=== PATIENT | female | born 1990 | race Caucasian/White ===

== ENCOUNTER 2016-12-14 10:09 | Emergency (ER) | payer MEDICAID ==
[~2016-12-14] VITALS: Ht 162.6 cm; Wt 62.1 kg
[~2016-12-14 10:09] MED LIST: PRENCAP35 PO
[2016-12-14 10:24] VITALS: BP 134/98; PULSE 87
[2016-12-14 10:25] VITALS: BP 120/72; PULSE 97
[2016-12-14 10:30] VITALS: RESP 16; TEMP 98.1
--- NOTE | 2016-12-14 10:41 | PD ---
HPI Chief Complaint abdominal pressure Travel History International Travel<30 Days: No Contact w/Intl Traveler<30Days: No History of Present Illness HPI Ms. Carter is a 26 yo G1 patient of Nellie Trevino at 32 1/7 weeks (YAN 02/07/2017) who presents with complaint of lower abdominal/vaginal cramping/pressure. Patient states that lower abdominal/vaginal pressure is constant in nature and has been present for the past hour. Patient states it will briefly remit for a few seconds at a time prior to recurring. Patient also reports urinary urgency ; she denies dysuria, fever/chills, back pain. Patient does not report vaginal bleeding or loss of vaginal fluid. Patient reports normal bowel movements. Patient denies headache, shortness of breath, chest pain, leg swelling, or other symptoms. Patient reports normal movement. Patient reports unremarkable course. Patient states she had normal ultrasounds several weeks prior. Patient states she smokes approximately one half pack of cigarettes daily. : 1 History Past Medical History Medical History: Denies Significant Hx Obstetric History Obstetric History G1 Past Surgical History Surgical History: No Previous Surgery Family History Narrative Family History Mother coronary artery diseases/p bypass Family History: Negative Social History Alcohol Use: No Tobacco Use: Yes Substance Abuse: No Allergies-Medications (Allergen,Severity, Reaction): Coded Allergies: No Known Allergies (Verified , 12/14/16) Home Meds Active Scripts Without A Vit W/ Fe F (Provida Ob 20-20-1.25 mg)1 Cap Cap1 Cap PO DAILY #60 BOTTLE Ref 5 Prov:Nellie Trevino [facility] 07/05/16 Review of Systems General / Constitutional: No: Fever, Chills HENT: No: Headaches Cardiovascular: No: Chest Pain or Discomfort Respiratory: No: Short of Breath Gastrointestinal: Abdominal Pain (lower), No: Nausea, Vomiting Genitourinary: Urgency, No: Dysuria Physical Exam T 98.1 RR 16 HR 97 BP 120/72 Narrative GENERAL: Well-nourished, well-developed patient. SKIN: Warm and dry. HEAD: Normocephalic and atraumatic. EYES: No scleral icterus. No injection or drainage. ENT: No nasal drainage noted. Mucous membranes pink. Airway patent. NECK: Supple, trachea midline. No JVD. CARDIOVASCULAR: Regular rate and rhythm without murmurs RESPIRATORY: KB, normal rate ABDOMEN/GI: Abdomen soft, no significant tenderness to palpation, bowel sounds present, no rebound, no guarding Gravid GENITOURINARY: External Genitalia: intact and normal in appearance Cervix: Dilatation: 0 Effacement: 0 Membranes: Intact Uterine Contractions: Initial q2-3 min FHT's: Category: 1 Baseline: 130 Reactive: Y Variability: Mod Decels: None Data Data Vital Signs Reviewed: Yes MDM Medical Record Reviewed: Yes Narrative Course / MDM 26 yo G1 patient of Nellie Trevino at 32 1/7 weeks (YAN 02/07/2017) -Complaints of lower abdominal/vaginal cramping/pressure -Contractions every 23 minutes on CTG -Cervix closed -Category 1 rhythm Plan: -Due to presence of contractions, will check FFN -We'll give IV LR 1 L bolus -Will give Terbutaline 0.25 mg -Will give Fentanyl 50 mcg -Will check UA Interval/Updated Plan: -Contractions persistent spite IV LR -FFN resulted as negative -UA not suggestive of UTI -Patient given additional Terbutaline 0.25 mg -Following IV fluids, 2 doses of terbutaline, and Fentanyl, patient's contractions ceased and she currently has intermittent uterine irritability; patient deemed stable for discharge home and follow up with her ELECTRIC SERVICEMAN as scheduled. Negative fibronectin also reassuring. Patient counseled regarding risks of labor and advised to return to ED with recurrence of abdominal pain/contractions, rupture fluid, or any other concerning symptoms. Patient advised to hydrate frequently at home and have "bed rest "away from work until evaluation by her ELECTRIC SERVICEMAN Diagnosis Diagnosis: Primary Impression: labor Disposition: DISCHARGE HOME Condition: Stable Departure Forms: Tests/Procedures, Work Release Enter return to work date: December 20, 2016 Francisco Javier Chisholm MD R2 Dec 14, 2016 10:41
[2016-12-14] MEDS ORDERED: TERBUTALINE INJ 1 MG/ML AMP SQ ONE ×2 (11:00→12:45)
[2016-12-14 11:17] LABS: BACTERIA, URINE RARE /hpf; BLOOD, URINE NEG (NEG); GLUCOSE,URINE NEG (NEG); KETONE, URINE NEG (NEG); MUCUS URINE FEW /lpf (OCC); NITRITE,URINE NEG (NEG); SQUAMOUS EPITHELIAL CELL URINE 14 /hpf (0-5); TRANSITIONAL EPI CELLS, URINE <1 /hpf; URINE COLOR YELLOW (YELLW/STRAW)
[2016-12-14 11:18] LABS: COMMENT (UR) CULT NOT INDICATED; CULTURE IF INDICATED CULT NOT INDICATED
[2016-12-14] MEDS: LACTATED RINGER'S 1000 ML INJ 1,000 ML IV SCH ×2 (11:30→12:44)
[2016-12-14 12:35] VITALS: PULSE 88
[2016-12-14 12:40] VITALS: PULSE 90
--- NOTE | 2016-12-14 12:41 | PD ---
History of Present Illness Date Seen: Dec 14, 2016 History of Present Illness is 26-year-old white female at 32 weeks and is complaining of abdominal pain. Denies bleeding or ruptured membranes. [facility]. He was noted to have a contractions on the monitor when evaluated heart rate tracing is reactive but she is vimal every 2-3 minutes. Her cervix is closed and fibronectin done which is negative. Urinalysis done negative. Patient received a liter of IV fluid 2 doses subcutaneous terbutaline 1 dose of IV fentanyl for sedation. These measures effectively tocolysed her contractions they dissipated without difficulty. She can be discharged home to bedrest increase oral fluids Tylenol liberally heating pad or hot tub for relaxation. She is to follow-up with her OB provider. Srinath Reynolds II, MD Dec 14, 2016 12:41
[2017-01-03] MEDS ORDERED: TERC0.4C2 VAGINAL (10:11)
== END 2016-12-14 15:15 | disposition home or self-care (01) ==
LOC: HOBED 10:09
DX: O60.03 Preterm labor without delivery, third trimester (principal); O99.333 Smoking (tobacco) complicating pregnancy, third trimester; F17.210 Nicotine dependence, cigarettes, uncomplicated; Z3A.32 32 weeks gestation of pregnancy
CPT/HCPCS: 59025; 81001; 82731; 96361; 96372; 96374; 99284; J3010; J3105; J7120

== ENCOUNTER 2017-01-20 14:44 | Emergency (ER) | payer MEDICAID ==
[2017-01-20 15:15] VITALS: PULSE 95
[2017-01-20 15:20] VITALS: PULSE 94
[2017-01-20 15:25] VITALS: PULSE 97
--- NOTE | 2017-01-20 15:38 | PD ---
HPI Chief Complaint Contractions, decreased movement Date Seen: Jan 20, 2017 Time Seen: 15:00 (Salvador Bajwa MD R1) Travel History International Travel<30 Days: No Contact w/Intl Traveler<30Days: No Known Affected Area: No (Salvador Bajwa MD R1) History of Present Illness HPI Patient is a 26-year-old at 37 weeks and 3 days who presents with contractions and decreased movement. She reports that she first started feeling contractions around 9 PM last night. She endorses both bilateral back pain and bilateral suprapubic crampy abdominal pain. She reports that her contractions as frequent as every 5-7 minutes. There becoming progressively more intense. She denies any leakage of fluid, vaginal bleeding. She also reports some decreased movement since yesterday morning. [facility] She endorses a headache, some feet swelling, but otherwise review systems is negative. Para: 0 : 1 (Salvador Bajwa MD) History Past Medical History Medical History: Denies Significant Hx (Salvador Bajwa MD) Obstetric History Obstetric History Patient reports that this is her first . (Salvador Bajwa MD R1) Past Surgical History Surgical History: No Previous Surgery (Salvador Bajwa MD) Family History Narrative Family History Patient's mother had a history of toxemia in . She also had 3 heart attacks, coronary artery bypass graft, stent. She also has an uncle with CAD and [place]. (Salvador Bajwa MD) Social History Narrative Social History Patient lives at home with her parents. Alcohol Use: No Tobacco Use: Yes (half a pack per day) Substance Abuse: No (Salvador Bajwa MD R1) Allergies-Medications (Allergen,Severity, Reaction): Coded Allergies: No Known Allergies (Verified , 01/20/17) Home Meds No Active Prescriptions or Reported Meds Narrative Medication Patient reports taking vitamins every day. (Salvador Bajwa MD R1) Review of Systems General / Constitutional: No: Fever, Chills Eyes: No: Blurred Vision, Visual changes HENT: No: Headaches Cardiovascular: No: Chest Pain or Discomfort, Edema Respiratory: No: Short of Breath Gastrointestinal: Abdominal Pain, No: Nausea, Vomiting Genitourinary: No: Dysuria Musculoskeletal: Cramping, Pain (back pain), No: Edema Neurologic: No: Headache (Salvador Bajwa MD R1) Physical Exam Patient is afebrile with vital signs stable and within normal limits. Narrative GENERAL: Well-nourished, well-developed patient. SKIN: Warm and dry. HEAD: Normocephalic and atraumatic. EYES: No scleral icterus. No injection or drainage. ENT: No nasal drainage noted. Mucous membranes pink. Airway patent. NECK: Supple, trachea midline. No JVD. CARDIOVASCULAR: Regular rate and rhythm without murmurs, gallops, or rubs. RESPIRATORY: Breath sounds equal bilaterally. No accessory muscle use. ABDOMEN/GI: Abdomen soft, non-tender, bowel sounds present, no rebound, no guarding Gravid to 37 weeks size GENITOURINARY: External Genitalia: intact and normal in appearance Cervix: Posterior Dilatation: Closed Effacement: Thick Station: -3 Presentation: Vertex Membranes: [intact] Uterine Contractions: 2 contractions about 5 minutes apart, but none afterwards FHT's: Category: Category 1 Baseline: 135 Reactive: + Variability: moderate Decels: none EXTREMITIES: No cyanosis or edema. BACK: Nontender without obvious deformity. No CVA tenderness. NEUROLOGICAL: Awake and alert. Motor and sensory grossly within normal limits. Five out of 5 muscle strength in all muscle groups. Normal speech. (Salvador Bajwa MD R1) Data Data Vital Signs Reviewed: Yes (Salvador Bajwa MD R1) Vital Signs Reviewed: Yes (Selvin Montes MD) MDM Plan Patient is a 26-year-old at 37 weeks and 3 days who presents with contractions and decreased movement. Category 1 tracing. Acceleration noted after cervical exam. Cervical exam showed long thick and closed cervix. 2 Contractions noted 5 minutes apart, then none afterwards. 1. contractions without cervical change Encourage by mouth hydration Discharge home Reassured patient 2. Patient reported decreased movement but category 1 tracing on monitor with acceleration after cervical exam Reassured patient and discharge from s/d/w Dr. Montes (Salvador Bajwa MD R1) Attending Attestation The exam, history, and the medical decision-making described in the above note were completed with the assistance of the resident provider. I reviewed and agree with the findings presented. I attest that I had a [id number] encounter with the patient on the same day, and personally performed and documented my assessment and findings in the medical record. (Selvin Montes MD) Diagnosis Diagnosis: Primary Impression: Normal Additional Impressions: Normal in third trimester Normal , first Disposition: 01 DISCHARGE HOME Condition: Good Scripts No Active Prescriptions or Reported Meds Salvador Bajwa MD R1 Jan 20, 2017 15:38 Selvin Montes MD Jan 20, 2017 15:41
== END 2017-01-20 15:49 | disposition home or self-care (01) ==
LOC: HOBED 14:44
DX: O26.93 Pregnancy related conditions, unspecified, third trimester (principal); R10.33 Periumbilical pain; Z3A.37 37 weeks gestation of pregnancy
CPT/HCPCS: 59025

== ENCOUNTER 2017-01-26 21:18 | Emergency (ER) | payer MEDICAID ==
--- NOTE | 2017-01-26 22:09 | PD ---
HPI Chief Complaint leakage of fluid Date Seen: Jan 26, 2017 Travel History International Travel<30 Days: No Contact w/Intl Traveler<30Days: No Known Affected Area: No History of Present Illness HPI G1 at 38w 2d presenting with c/o LOF. Reports fluid as clear and leakage beginning this afternoon. Seen in the office today, reports exam as 1-2cm dilated. Denies VB. Reports occasional contractions and good FM. Para: 0 : 1 History Past Medical History Medical History: Denies Significant Hx Past Surgical History Surgical History: No Previous Surgery Social History Alcohol Use: No Tobacco Use: Yes Substance Abuse: No Allergies-Medications (Allergen,Severity, Reaction): Coded Allergies: No Known Allergies (Verified , 01/26/17) Home Meds No Active Prescriptions or Reported Meds Review of Systems Except as stated in HPI: all other systems reviewed are Neg Physical Exam AFVSS BP 126/77 Narrative GENERAL: Well-nourished, well-developed patient. SKIN: Warm and dry. HEAD: Normocephalic and atraumatic. EYES: No scleral icterus. No injection or drainage. ENT: No nasal drainage noted. Mucous membranes pink. Airway patent. NECK: Supple, trachea midline. No JVD. CARDIOVASCULAR: Regular rate and rhythm without murmurs, gallops, or rubs. RESPIRATORY: Breath sounds equal bilaterally. No accessory muscle use. BREASTS: Bilateral exam showed no masses , no retractions, no nipple discharge. ABDOMEN/GI: Abdomen soft, non-tender, bowel sounds present, no rebound, no guarding Gravid to [-] weeks size Fundal Height: [-] GENITOURINARY: External Genitalia: intact and normal in appearance BUS glands: [-] Cervix: [-] Dilatation: [1-2] Effacement: [50] Station: [-3] Presentation: [-] Membranes: [intact or ruptured] Uterine Contractions: [occasional] FHT's: Category: [1] Baseline: [130s] Reactive: [yes] Variability: [moderate] Decels: [none] EXTREMITIES: No cyanosis or edema. BACK: Nontender without obvious deformity. No CVA tenderness. NEUROLOGICAL: Awake and alert. Motor and sensory grossly within normal limits. Five out of 5 muscle strength in all muscle groups. Normal speech. Data Data Vital Signs Reviewed: Yes Labs AmniSure negative MDM Interpretation(s) IUP at 38w 2d, irregular contractions. Plan Labor precautions given. Keep next scheduled OB f/u. Diagnosis Diagnosis: Primary Impression: 38 weeks gestation of Additional Impressions: Irregular contractions No leakage of amniotic fluid into vagina Scripts No Active Prescriptions or Reported Meds Patient Instructions: General Instructions, Early Labor Signs (ED), Having Your Baby: The Labor Process (GEN) Additional Instructions: RETURN FOR CONTRACTIONS, LOSS OF FLUID (WATER BREAKING), VAGINAL BLEEDING, OR DECREASED MOVEMENT DRINK 8-10 LARGE GLASSES OF WATER EVERY DAY KEEP SCHEDULED APPOINTMENT WITH YOUR PROVIDER Departure Forms: Tests/Procedures Ana Liu MD Jan 26, 2017 22:09
== END 2017-01-26 22:35 | disposition home or self-care (01) ==
LOC: HOBED 21:18
DX: O26.93 Pregnancy related conditions, unspecified, third trimester (principal); Z3A.38 38 weeks gestation of pregnancy
CPT/HCPCS: 84112; 99282

== ENCOUNTER 2017-02-01 18:14 | Inpatient (IN) | payer MEDICAID ==
[~2017-02-01] VITALS: Ht 162.6 cm; Wt 65.8 kg
--- NOTE | 2017-02-01 18:54 | PD ---
HPI Chief Complaint Contractions/Leaking fluid Travel History International Travel<30 Days: No Contact w/Intl Traveler<30Days: No Known Affected Area: No History of Present Illness HPI G1 at 39w 1d presents with c/o contractions and leaking clear fluid. AmniSure negative. Patient seen in the office yesterday, reports being dilated 3cm. Denies VB. Good movement. Denies problems this . Noted to make cervical change per RN exam while in [place]. History Past Medical History Medical History: Denies Significant Hx Past Surgical History Surgical History: No Previous Surgery Family History Family History: Negative Social History Alcohol Use: No Tobacco Use: No Substance Abuse: No Allergies-Medications (Allergen,Severity, Reaction): Coded Allergies: No Known Allergies (Verified , 01/31/17) Home Meds No Active Prescriptions or Reported Meds Review of Systems Except as stated in HPI: all other systems reviewed are Neg Physical Exam AFVSS BP 123/69 Narrative GENERAL: Well-nourished, well-developed patient. SKIN: Warm and dry. HEAD: Normocephalic and atraumatic. EYES: No scleral icterus. No injection or drainage. ENT: No nasal drainage noted. Mucous membranes pink. Airway patent. NECK: Supple, trachea midline. No JVD. CARDIOVASCULAR: Regular rate and rhythm without murmurs, gallops, or rubs. RESPIRATORY: Breath sounds equal bilaterally. No accessory muscle use. BREASTS: Bilateral exam showed no masses , no retractions, no nipple discharge. ABDOMEN/GI: Abdomen soft, non-tender, bowel sounds present, no rebound, no guarding Gravid to [-] weeks size Fundal Height: [-] GENITOURINARY: External Genitalia: intact and normal in appearance BUS glands: [-] Cervix: [exam per RN] Dilatation: [3] Effacement: [70] Station: [-2] Presentation: [-] Membranes: [intact or ruptured] Uterine Contractions: [irregular contractions] FHT's: Category: [1] Baseline: [130s] Reactive: [-] Variability: [moderate] Decels: [none] EXTREMITIES: No cyanosis or edema. BACK: Nontender without obvious deformity. No CVA tenderness. NEUROLOGICAL: Awake and alert. Motor and sensory grossly within normal limits. Five out of 5 muscle strength in all muscle groups. Normal speech. Data Data Labs AmniSure- negative labs: A+/negative, Rubella- immune, RPR- NR, Hep B- negative, HIV- negative, GC/Chl- negative, TSH 1.49, GBS- positive MDM Interpretation(s) IUP at 39w 1d, false labor. Plan Will admit. GBS prophylaxis. Epidural per anesthesia. All questions answered. Diagnosis Diagnosis: Primary Impression: 39 weeks gestation of Additional Impressions: Irregular uterine contractions GBS (group B Streptococcus carrier), +RV culture, currently Scripts No Active Prescriptions or Reported Meds Ana Liu MD Feb 01, 2017 18:54
--- NOTE | 2017-02-01 20:24 | HHI.HP ---
History & Physical H&P HPI HPI Chief Complaint Contractions/Leaking fluid Travel History International Travel<30 Days: No Contact w/Intl Traveler<30Days: No Known Affected Area: No History of Present Illness HPI G1 at 39w 1d presents with c/o contractions and leaking clear fluid. AmniSure negative. Patient seen in the office yesterday, reports being dilated 3cm. Denies VB. Good movement. Denies problems this . Noted to make cervical change per RN exam while in [place]. History (Limited) History Past Medical History Medical History: Denies Significant Hx Past Surgical History Surgical History: No Previous Surgery Family History Family History: Negative Social History Alcohol Use: No Tobacco Use: No Substance Abuse: No Allergies-Medications Allergies-Medications (Allergen,Severity, Reaction): Coded Allergies: No Known Allergies (Verified , 01/31/17) Home Meds No Active Prescriptions or Reported Meds ROS Review of Systems Except as stated in HPI: all other systems reviewed are Neg Physical Exam Physical Exam AFVSS BP 123/69 Narrative GENERAL: Well-nourished, well-developed patient. SKIN: Warm and dry. HEAD: Normocephalic and atraumatic. EYES: No scleral icterus. No injection or drainage. ENT: No nasal drainage noted. Mucous membranes pink. Airway patent. NECK: Supple, trachea midline. No JVD. CARDIOVASCULAR: Regular rate and rhythm without murmurs, gallops, or rubs. RESPIRATORY: Breath sounds equal bilaterally. No accessory muscle use. BREASTS: Bilateral exam showed no masses , no retractions, no nipple discharge. ABDOMEN/GI: Abdomen soft, non-tender, bowel sounds present, no rebound, no guarding Gravid to [-] weeks size Fundal Height: [-] GENITOURINARY: External Genitalia: intact and normal in appearance BUS glands: [-] Cervix: [exam per RN] Dilatation: [3] Effacement: [70] Station: [-2] Presentation: [-] Membranes: [intact or ruptured] Uterine Contractions: [irregular contractions] FHT's: Category: [1] Baseline: [130s] Reactive: [-] Variability: [moderate] Decels: [none] EXTREMITIES: No cyanosis or edema. BACK: Nontender without obvious deformity. No CVA tenderness. NEUROLOGICAL: Awake and alert. Motor and sensory grossly within normal limits. Five out of 5 muscle strength in all muscle groups. Normal speech. Data Data Data Labs AmniSure- negative labs: A+/negative, Rubella- immune, RPR- NR, Hep B- negative, HIV- negative, GC/Chl- negative, TSH 1.49, GBS- positive MDM MDM Interpretation(s) IUP at 39w 1d, false labor. Plan Will admit. GBS prophylaxis. Epidural per anesthesia. All questions answered. Diagnosis Diagnosis: Primary Impression: 39 weeks gestation of Additional Impressions: Irregular uterine contractions GBS (group B Streptococcus carrier), +RV culture, currently Ana Liu MD Feb 01, 2017 20:24
[2017-02-01] MEDS: LACTATED RINGER'S 1000 ML INJ 1,000 ML IV SCH (20:25)
[2017-02-01] MEDS ORDERED: LACTATED RINGER'S 1000 ML INJ 1,000 ML IV PRN (20:25)
[2017-02-01] MEDS ORDERED: LIDOCAINE HCL 1% 50 ML VIAL I-DERMAL PRN (20:30)
[2017-02-01] MEDS ORDERED: OXYTOCIN 30 UNITS-500ML PREMIX 500 ML IV ONE (20:30)
[2017-02-01] MEDS ORDERED: LIDOCAINE HCL 1% 50 ML VIAL INFIL PRN (20:30)
[2017-02-01] MEDS ORDERED: MINERAL OIL 10 ML VIAL TOPICAL PRN (20:30)
[2017-02-01] MEDS ORDERED: PENICILLIN G POTASSIUM INJ 5,000,000 UNITS in SODIUM CHLORIDE 0.9% INJ 100 ML IV ONE (20:30)
[2017-02-01] MEDS ORDERED: CITRIC ACID-SODIUM CITRATE LIQ 30 ML UDC PO SCH (20:30)
[2017-02-01] MEDS ORDERED: SODIUM CHLORID 0.9% 500 ML INJ 500 ML IV PRN (20:30)
[2017-02-01 20:43] VITALS: BP 133/89; PULSE 94
[2017-02-01] MEDS ORDERED: SODIUM CHLOR 0.9% 1000 ML INJ 1,000 ML IV PRN (20:45)
[2017-02-01] MEDS ORDERED: PREN29TA PO (21:08)
[2017-02-01 21:14] LABS: AUTOMATED NEUTROPHIL # 15.4 TH/MM3 (1.8-7.7); BASOPHIL % 0.2 % (0.0-2.0); EOSINOPHIL # 0.1 TH/MM3 (0-0.4); EOSINOPHIL % 0.4 % (0.0-4.0); HEMATOCRIT 34.2 % (35.0-46.0); HEMO FLAGS DIFF FINAL; LYMPH % 11.3 % (9.0-44.0); LYMPHOCYTE # 2.1 TH/MM3 (1.0-4.8); MEAN CELL VOLUME 87.1 FL (80.0-100.0); MEAN CORPUSCULAR HGB CONC 33.3 % (32.0-36.0); MONO % 5.9 % (0.0-8.0); NEUT % 82.2 % (16.0-70.0); PLATELET COUNT 195 TH/MM3 (150-450); RED BLOOD COUNT 3.93 MIL/MM3 (4.00-5.30); RED CELL DISTRIBUTION WIDTH 12.7 % (11.6-17.2); WHITE BLOOD COUNT 18.8 TH/MM3 (4.0-11.0)
[2017-02-01 21:15] LABS: BLOOD, URINE NEG (NEG); COMMENT (UR) CULT NOT INDICATED; CULTURE IF INDICATED CULT NOT INDICATED; GLUCOSE,URINE NEG (NEG); KETONE, URINE NEG (NEG); MUCUS URINE FEW /lpf (OCC); NITRITE,URINE NEG (NEG); PH, URINE 6.5 (5.0-8.5); SQUAMOUS EPITHELIAL CELL URINE 5 /hpf (0-5); URINE COLOR YELLOW (YELLW/STRAW)
[2017-02-01 23:21] VITALS: TEMP 98.1
[2017-02-01 23:22] VITALS: BP 130/79; PULSE 82; RESP 18
[2017-02-02] VITALS (29 sets, daily range): BP systolic 101–137; BP diastolic 50–98; PULSE 67–105; RESP 16–18; TEMP 97.9–98.5
[2017-02-02] MEDS ORDERED: ePHEDrine/NS 25 MG/5 ML SYR ONE (00:19)
[2017-02-02] MEDS ORDERED: fentaNYL 2MCG-BUPIV 0.125% INJ 100 ML ONE (00:19)
[2017-02-02] MEDS: PENICILLIN G POTASSIUM INJ 2,500,000 UNITS in SODIUM CHLORIDE 0.9% INJ 100 ML IV SCH ×2 (01:13→05:18)
[2017-02-02] MEDS: LACTATED RINGER'S 1000 ML INJ 1,000 ML IV SCH (01:14)
[2017-02-02 01:52] LABS: AMPHETAMINE, URINE NEG (NEG); BARBITURATES, URINE NEG (NEG); COCAINE, URINE NEG (NEG)
[2017-02-02] MEDS ORDERED: NO SYSTEM NARCOTICS PRN (02:00)
[2017-02-02] MEDS ORDERED: DO NOT ADMINISTER ANTICOAGULANTS PRN (02:00)
[2017-02-02] MEDS ORDERED: OXYTOCIN 30 UNITS-500ML PREMIX 500 ML ONE (07:19)
--- NOTE | 2017-02-02 07:51 | PD.OB.DELI ---
Delivery Date: Feb 02, 2017 Anesthesia: Epidural Episiotomy: None Vaginal Delivery: Normal Presentation: Occiput anterior, Compound (right hand) Nuchal Cord: x1 Delayed cord clamping (45 sec): Yes : Male One Minute : 9 Five Minute : 9 Weight: 2565g Placenta: Spontaneous delivery, Intact, 3 vessel cord Laceration: 1 deg (right periurethral) Repair: Chromic interrupted (2 figure of 8 sutures) Additional Information EBL 250cc Shayy Dillon MD R2 Feb 02, 2017 07:51
[2017-02-02] MEDS ORDERED: ZOLPIDEM TARTRATE 5 MG TAB PO PRN (09:00)
[2017-02-02] MEDS ORDERED: WITCH HAZEL 50%/GLYCERIN 12.5% 40 PAD JAR TOPICAL PRN (09:00)
[2017-02-02] MEDS ORDERED: ACETAMINOPHEN 325 MG TAB PO PRN (09:00)
[2017-02-02] MEDS ORDERED: ALUMINUM/MAGNESIUM/SIMETH 30 ML CUP PO PRN (09:00)
[2017-02-02] MEDS ORDERED: SODIUM CHLORIDE 0.9% FLUSH 10 ML FLUSH IV FLUSH PRN (09:00)
[2017-02-02] MEDS ORDERED: IBUPROFEN 600 MG TAB PO PRN (09:00)
[2017-02-02] MEDS ORDERED: BENZOCAINE 20% TOPICAL SPRAY 60 ML CAN TOPICAL PRN (09:00)
[2017-02-02] MEDS ORDERED: DOCUSATE SODIUM 50 MG/SENNA 8.6 MG TAB PO PRN (09:00)
[2017-02-02] MEDS ORDERED: ONDANSETRON ODT 4 MG TAB PO PRN (09:00)
[2017-02-02 10:38] LABS: RAPID PLASMA REAGIN SCREEN NON-REACTIVE (NON-REACTVE)
[2017-02-02 13:58] LABS: AUTOMATED NEUTROPHIL # 20.8 TH/MM3 (1.8-7.7); BASOPHIL % 0.2 % (0.0-2.0); EOSINOPHIL # 0.1 TH/MM3 (0-0.4); EOSINOPHIL % 0.2 % (0.0-4.0); HEMATOCRIT 32.2 % (35.0-46.0); HEMO FLAGS DIFF FINAL; LYMPH % 8.2 % (9.0-44.0); MEAN CORPUSCULAR HEMOGLOBIN 29.2 PG (27.0-34.0); MEAN CORPUSCULAR HGB CONC 33.5 % (32.0-36.0); MONO % 4.3 % (0.0-8.0); NEUT % 87.1 % (16.0-70.0); PLATELET COUNT 181 TH/MM3 (150-450); RED CELL DISTRIBUTION WIDTH 13.2 % (11.6-17.2); WHITE BLOOD COUNT 23.9 TH/MM3 (4.0-11.0)
[2017-02-02] MEDS ORDERED: DIPHTH/TETANUS/ACEL PERTUSSIS (BOOSTER) 0.5 ML VIAL/PFS IM ONE (16:00)
[2017-02-02] MEDS ORDERED: MEASLES, MUMPS, RUBELLA VACCINE 0.5 ML VIAL SQ ONE (16:00)
[2017-02-02] MEDS: SODIUM CHLORIDE 0.9% FLUSH 10 ML FLUSH IV FLUSH SCH (21:00)
--- NOTE | 2017-02-03 07:00 | HHI.OB ---
Subjective Remarks day # 1. AFVSS overnight. Decreased lochia. Denies dysuria. No breast tenderness. She is feeding the baby via breast. Appetite good. No nausea or vomiting. Ambulating well. Denies calf pain or shortness of breath. Otherwise, she is doing well this morning and has no other complaints. ( Shayy Dillon MD R2) Objective Vitals/I&O Vital Signs Date Time Temp Pulse Resp B/P Pulse Ox O2 Delivery O2 Flow Rate FiO2 02/02/17 10:00 98.5 94 16 108/50 02/02/17 09:45 98.0 02/02/17 09:15 76 134/83 02/02/17 09:00 17 02/02/17 08:46 79 02/02/17 08:46 111/88 02/02/17 08:45 111/98 02/02/17 08:45 81 02/02/17 08:45 17 Objective Remarks GENERAL: Well-nourished, well-developed patient. CARDIOVASCULAR: Regular rate and rhythm without murmurs, gallops, or rubs. RESPIRATORY: Breath sounds equal bilaterally. No accessory muscle use. ABDOMEN/GI: Abdomen soft, non-tender. Fundus: Firm, non-tender at umbilicus. GENITOURINARY: Light to moderate bleeding. EXTREMITIES: No cyanosis or edema, non-tender, without signs of DVT. Medications and IVs Current Medications Medications (Trade) Dose Ordered Sig/Kofi Route Start Time Stop Time Status Last Admin (NS Flush) 2 ml BID IV FLUSH 02/02/17 09:00 (NS Flush) 2 ml UNSCH PRN IV FLUSH 02/02/17 09:00 (Tylenol) 650 mg Q4H PRN PO 02/02/17 09:00 (Motrin) 600 mg Q6H PRN PO 02/02/17 09:00 02/02/17 23:38 (Americaine 20% Top Spr) 1 spray Q4H PRN TOPICAL 02/02/17 09:00 02/02/17 23:38 (Tucks Pads) 1 applic QID PRN TOPICAL 02/02/17 09:00 02/02/17 23:37 (Jillian-Colace) 2 tab Q12H PRN PO 02/02/17 09:00 (Ambien) 5 mg HS PRN PO 02/02/17 09:00 (Mag-Al Plus Susp Liq) 15 ml Q8H PRN PO 02/02/17 09:00 (Zofran Odt) 4 mg Q6H PRN PO 02/02/17 09:00 (Shayy Dillon MD R2) Assessment/Plan Assessment and Plan 26 y/o female who is PPD# 1 s/p . -Continue routine care. -Percocet and Motrin PRN pain. -Encouraged OOB. Advised pelvic rest for 6 wks. -Re: ctrl, she would like an IUD. -Anticipate discharge home tomorrow. dw Dr. Chao and Dr. Júnior Mo PGY-1 (Shayy Dillon MD R2) Collaborating MD Comments Agree with management plans. (Shannan Chao MD) Shayy Dillon MD R2 Feb 03, 2017 07:00 Shannan Chao MD Feb 03, 2017 07:50
[2017-02-03] MEDS: SODIUM CHLORIDE 0.9% FLUSH 10 ML FLUSH IV FLUSH SCH (09:00)
--- NOTE | 2017-02-04 06:58 | HHI.OB ---
Subjective Post Day: 2 Remarks day # 2. AFVSS overnight. Decreased lochia. Denies dysuria. No breast tenderness. She is feeding the baby via breast and formula. Appetite good. No nausea or vomiting. Ambulating well. Denies calf pain or shortness of breath. Otherwise, she is doing well this morning and has no other complaints. (Shirin Mo MD R1) Remarks I rounded on the patient. I rounded with the resident. I reviewed the resident' s assessment and plan of care for this patient. I am in agreement with the plan of care for this patient. (Blanca Whitney MD) Objective Objective Remarks GENERAL: Well-nourished, well-developed female in no apparent distress. CARDIOVASCULAR: Regular rate and rhythm without murmurs, gallops, or rubs. RESPIRATORY: Breath sounds equal bilaterally. No accessory muscle use. ABDOMEN/GI: Abdomen soft, non-tender. Fundus: Firm, non-tender at umbilicus. GENITOURINARY: Light to moderate bleeding. EXTREMITIES: No cyanosis or edema, non-tender, without signs of DVT. Medications and IVs Current Medications Medications (Trade) Dose Ordered Sig/Kofi Route Start Time Stop Time Status Last Admin (NS Flush) 2 ml BID IV FLUSH 02/02/17 09:00 (NS Flush) 2 ml UNSCH PRN IV FLUSH 02/02/17 09:00 (Tylenol) 650 mg Q4H PRN PO 02/02/17 09:00 (Motrin) 600 mg Q6H PRN PO 02/02/17 09:00 02/02/17 23:38 (Americaine 20% Top Spr) 1 spray Q4H PRN TOPICAL 02/02/17 09:00 02/02/17 23:38 (Tucks Pads) 1 applic QID PRN TOPICAL 02/02/17 09:00 02/02/17 23:37 (Jillian-Colace) 2 tab Q12H PRN PO 02/02/17 09:00 (Ambien) 5 mg HS PRN PO 02/02/17 09:00 (Mag-Al Plus Susp Liq) 15 ml Q8H PRN PO 02/02/17 09:00 (Zofran Odt) 4 mg Q6H PRN PO 02/02/17 09:00 (Shirin Mo MD R1) Assessment/Plan Assessment and Plan 26 y/o female who is PPD# 2 s/p . -Continue routine care. -Tylenol and Motrin PRN pain. -Encouraged OOB. Advised pelvic rest for 6 wks. -Re: ctrl, she would like an IUD. -Anticipate discharge home today. wdw Dr. Clint Dillon PGY-2 Discharge Planning Discharge home today (Shirin Mo MD R1) Shirin Mo MD R1 Feb 04, 2017 06:58 Blanca Whitney MD Feb 04, 2017 08:59
[2017-02-04] MEDS ORDERED: IBUP-232 PO (07:01)
[2017-02-04] MEDS ORDERED: PREN29TA PO (07:01)
[2017-02-04] MEDS ORDERED: ACET1TAB86 PO (07:01)
--- NOTE | 2017-02-04 07:02 | HHI.DCPOC ---
Discharge Care Plan Diagnosis: (1) Vaginal delivery Report Symptoms to Your Doctor -Temperature above 100.5 degrees -Redness, of incision or excessive or foul smelling drainage -Unusual pain or calf pain -Increased vaginal bleeding -Painful or difficulty urinating -Feelings of extreme sadness or anxiety after 2 weeks Goals to Promote Your Health * To prevent worsening of your condition and complications * To maintain your health at the optimal level Directions to Meet Your Goals Take your medications as prescribed Follow your dietary instruction Follow activity as directed Ensure plenty of rest for recovery Drink fluids for hydration Keep your appointments as scheduled Take your immunizations and boosters as scheduled If your symptoms worsen call your PCP, if no PCP go to Urgent Care Center or Emergency Room Smoking is Dangerous to Your Health. Avoid second hand smoke Call the 24-hour crisis hotline for domestic abuse at Addendum Remarks I rounded on the patient. I rounded with the resident. I reviewed the resident' s assessment and plan of care for this patient. I am in agreement with the plan of care for this patient. Shirin Mo MD R1 Feb 04, 2017 07:02 Blanca Whitney MD Feb 04, 2017 09:00
== END 2017-02-04 12:43 | disposition home or self-care (01) | DRG 775 ==
LOC: HOBED 18:14 → H2EB 20:15 → H1EA 02-02 10:01
PROVIDERS: ADMIT Obstetrics & Gynecology; ATTEND Obstetrics & Gynecology
PROC: 10E0XZZ Delivery of Products of Conception, External Approach (ICD-10-PCS; principal; 2017-02-02)
PROC: 3E0R3CZ (ICD-10-PCS; 2017-02-02)
PROC: 0HQ9XZZ Repair Perineum Skin, External Approach (ICD-10-PCS; 2017-02-02)
DX: O70.0 First degree perineal laceration during delivery (principal); O69.81X0 Labor and delivery complicated by cord around neck, without compression, not applicable or unspecified; Z37.0 Single live birth; Z3A.39 39 weeks gestation of pregnancy
CPT/HCPCS: 59025; 80307; 81001; 84112; 85025; 86592; 86900; 86901; 99285; J2540; J2590; J7120

== ENCOUNTER 2017-10-26 19:51 | Emergency (ER) | payer MEDICAID ==
[~2017-10-26 19:51] MED LIST changes: +HYDRCRE TOPICAL; -PRENCAP35 PO
[2017-10-27] MEDS ORDERED: IBUP1TAB7 PO (16:54)
== END 2017-10-26 20:42 | disposition left against medical advice (07) ==
LOC: PHED 19:51
DX: Z53.21 Procedure and treatment not carried out due to patient leaving prior to being seen by health care provider (principal)
CPT/HCPCS: 99281

== ENCOUNTER 2017-10-27 15:08 | Emergency (ER) | payer MEDICAID ==
[~2017-10-27] VITALS: Ht 165.1 cm; Wt 52.9 kg
[2017-10-27 15:39] VITALS: BP 128/72; PULSE 99; RESP 16; TEMP 98.1; O2SAT 98
--- NOTE | 2017-10-27 16:18 | RADRPT ---
EXAM DATE/TIME: 10/27/2017 15:58 [facility] COMPARISON: No previous studies available for comparison. INDICATIONS : Right knee pain; twisted leg last night. MEDICAL HISTORY : None. SURGICAL HISTORY : None. ENCOUNTER: Initial ACUITY: 1 day PAIN SCORE: 8/10 LOCATION: Right knee. FINDINGS: Four view examination of the right knee demonstrates no evidence of fracture or dislocation. Bony mi neralization is normal. The articular surfaces are intact. Moderately large suprapatellar effusion. CONCLUSION: 1. Suprapatellar effusion possibly indicative of internal derangement. 2. No fracture or significant degenerative changes. Tobi Nicole MD on October 27, 2017 at 16:15 Board Certified Radiologist. This report was verified electronically.
[2017-10-27] MEDS ORDERED: IBUPROFEN 800 MG TAB PO ONE (16:30)
--- NOTE | 2017-10-27 16:48 | PD ---
HPI Chief Complaint: Injury Time Seen by Provider: 15:52 Travel History International Travel<30 days: No Contact w/Intl Traveler<30days: No Traveled to known affect area: No History of Present Illness HPI 26-year-old female here with right knee pain one day. She reports she was dancing and had a twisting injury to the knee. She now has difficulty weightbearing and is unable to fully extend and fully bend the knee due to pain. She denies paresthesias or weakness of the extremity. Severity is moderate. Slightly alleviated with rest. PFSH Past Medical History Medical History: Denies Significant Hx Diminished Hearing: No Psychiatric: Yes (suicidal when on control) Immunizations Current: Yes Migraines: Yes Influenza Vaccination: No ?: Not LMP: 10/12/17 : 0 Past Surgical History Oral Surgery: Yes (tooth extraction) Social History Alcohol Use: No Tobacco Use: No Substance Use: No Allergies-Medications (Allergen,Severity, Reaction): Coded Allergies: No Known Allergies (Verified Adverse Reaction, Unknown, 10/27/17) Reported Meds & Prescriptions Reported Meds & Active Scripts Active No Active Prescriptions or Reported Medications Review of Systems Except as stated in HPI: all other systems reviewed are Neg General / Constitutional: No: Fever Eyes: No: Visual changes HENT: No: Headaches Cardiovascular: No: Chest Pain or Discomfort Respiratory: No: Shortness of Breath Gastrointestinal: No: Abdominal Pain Genitourinary: No: Dysuria Physical Exam Narrative GENERAL: Alert and well-appearing 26 old female SKIN: Warm and dry. HEAD: Normocephalic. EYES: No injection or drainage. NECK: Supple CARDIOVASCULAR: Regular rate and rhythm RESPIRATORY: Breath sounds equal bilaterally. No accessory muscle use. GASTROINTESTINAL: Abdomen soft, non-tender, nondistended. MUSCULOSKELETAL: No cyanosis. Right knee: Notable swelling to the anterior aspect. No deformity. Knee is held in slight flexion. The joint is stable. No laxity. Incision. 2+ distal pulses. Brisk cap refill. BACK: Nontender without obvious deformity. No CVA tenderness. Data Data Last Documented VS Vital Signs Date Time Temp Pulse Resp B/P (MAP) Pulse Ox O2 Delivery O2 Flow Rate FiO2 10/27/17 15:39 98.1 99 16 128/72 (90) 98 Orders Orders Knee, Complete (4vws) (10/27/17 ) Devin Bandage (3/8/18 16:27) Crutches (10/27/17 16:27) Ibuprofen (Motrin) (10/27/17 16:30) [facility] Medical Decision Making Medical Screen Exam Complete: Yes Emergency Medical Condition: Yes Differential Diagnosis Fracture versus sprain/strain versus internal derangement Narrative Course 26-year-old female here with left knee pain after twisting injury while dancing yesterday evening. The extremity is neurovascular intact. She does have moderate amount of swelling. X-rays negative for fracture, positive for joint effusion. Discussed findings with patient. Knee immobilizing splint was not tolerated by patient. Knee immobilizer with Devin wrap's. Area was Devin wrapped for support crutches for weightbearing. She was provided the name and number to the on-call orthopedic doctor for follow-up this week. She verbalizes understanding and agrees to plan Diagnosis Primary Impression: Knee sprain Qualified Codes: S83.91XA - Sprain of unspecified site of right knee, initial encounter Referrals: Godwin Wright MD, Todd Andrew MD Departure Forms: Tests/Procedures, Work Release Special Instructions: No weightbearing on the right knee until follow-up with orthopedic doctor Additional Instructions: Ice and elevate the extremity. Ibuprofen 800 mg every 6 hours for pain. Crutches for weightbearing. Call to make a follow-up appointment with orthopedic doctor. Scripts Ibuprofen (Ibuprofen) 800 Mg Tab 800 MG PO Q6HR Y for PAIN, #40 TAB 0 Refills Prov: Barb Hall 10/27/17 Disposition: 01 DISCHARGE HOME Condition: Stable Barb Hall Oct 27, 2017 16:47
[2017-10-27] MEDS ORDERED: IBUP1TAB7 PO (16:54)
== END 2017-10-27 17:00 | disposition home or self-care (01) ==
LOC: PHEFT 15:08
DX: S83.91XA Sprain of unspecified site of right knee, initial encounter (principal); X50.1XXA Overexertion from prolonged static or awkward postures, initial encounter; Y93.41 Activity, dancing
CPT/HCPCS: 73564; 99283; E0113